=== PATIENT | female | born 1990 | race Two or more races ===

== ENCOUNTER 2017-11-07 10:15 | Emergency (ER) | payer OTHER ==
[~2017-11-07] VITALS: Ht 175.3 cm; Wt 61.2 kg
[2017-11-07] MEDS ORDERED: ACIDOPHILUS1 EAC3 PO (13:24)
[2017-11-07] MEDS ORDERED: ZITHROMAX TRI-500 MG PO (13:24)
[2017-11-07] MEDS ORDERED: TUSSI PRES-B L120 M1 PO (13:24)
== END 2017-11-07 13:50 | disposition home or self-care (01) ==
LOC: ER 10:15
DX: K29.00 Acute gastritis without bleeding (principal); B34.9 Viral infection, unspecified